=== PATIENT | female | born 1955 | race Caucasian/White ===

== ENCOUNTER 2018-04-14 06:10 | Inpatient (IN) ==
[2018-04-14] MEDS ORDERED: Albuterol 2.5 MG/3 ML NEBULIZER IH ONE (06:32)
[2018-04-14] MEDS ORDERED: CeFAZolin Syr 2,000MG/20 ML 2,000 MG/20 ML SYRINGE IVPB ONE (06:32)
[2018-04-14] MEDS ORDERED: Albuterol 2.5 MG/3 ML NEBULIZER ONE (06:37)
[2018-04-14] MEDS ORDERED: Ringers Solution, Lactated 1,000 ML IVC SCH ×2 (06:45→09:48)
--- NOTE | 2018-04-14 06:58 | History & Physical Report ---
Date of Encounter: 04/14/18 Time of Encounter: 06:58 24 Hour HP Update - Instructions Instructions: If the History and Physical is less than 30 days old and was completed prior to A.M. admission and or procedure and has NOT been updated on calendar day of procedure please complete this update prior to performing procedure. - Update Patient reports changes in Medical Condition: No Changes in examination, assessment, or condition: No Changes in Medication: No Preop tests/diagnostics Reviewed: Yes Surgery Remains Indicated: Yes Consent for Planned Operative Procedure(s) Verified: Yes - Pre-Operative Checklist Preoperative Checklist Indicated: No Prophylactic Antibiotic Ordered: Yes Is VTE Prophylaxis Indicated?: Yes
[2018-04-14] MEDS ORDERED: Lidocaine -MPF 2% 2 ML VIAL ONE (07:07)
[2018-04-14] MEDS ORDERED: *HR* Succinylcholine 200 MG/10 ML VIAL IVP ONE (07:07)
[2018-04-14] MEDS ORDERED: Dexamethasone 4 MG/ML VIAL ONE ×2 (07:07→07:10)
[2018-04-14] MEDS ORDERED: Lidocaine -MPF 4% 5 ML AMPUL ONE (07:07)
[2018-04-14] MEDS ORDERED: Ondansetron 4 MG/2 ML VIAL ONE (07:07)
[2018-04-14] MEDS ORDERED: *HR* Midazolam HCl 2 MG/2 ML VIAL ONE (07:08)
[2018-04-14] MEDS ORDERED: *HR* Propofol 200 MG/20 ML VIAL IVP ONE (07:08)
[2018-04-14] MEDS ORDERED: *HR* FentaNYL (PF) 100 MCG/2 ML VIAL ONE (07:08)
[2018-04-14] MEDS ORDERED: Ethanol\\Acetic Acid\\Na Ace\\Ben 1,000 ML IRRIG.SOLN IR ONE (07:09)
[2018-04-14] MEDS ORDERED: ROPIVACAINE HCL/PF 0.5% 30 ML VIAL ONE (07:14)
[2018-04-14] MEDS ORDERED: Bupivacaine/Clonidine Syringe 1 EACH SYRINGE ONE (07:14)
--- NOTE | 2018-04-14 07:17 | Anesthesia Evaluation PreOp ---
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 Other Medical History: Diabetes Type II, GERD Anesthesia History: No Prior Anesthetic Complications : No Alcohol Use: none Drug use: none Medications and Allergies Albuterol Sulfate [Albuterol Inhaler] 2 puff IH Q6H PRN 11/27/15 [History] Aspirin Enteric Coated [Aspirin EC] 81 mg PO DAILY 11/27/15 [History] Cholecalciferol (D-3) [Vitamin D] 1,000 unit PO DAILY 11/27/15 [History] Furosemide [Lasix] 20 mg PO DAILY 11/27/15 [History] Levothyroxine [Synthroid] 100 mcg PO MOTUWETHFRSA 11/27/15 [History] Losartan Potassium [Cozaar] 50 mg PO DAILY 11/27/15 [History] Metoprolol XL (24 HR) Succ [Toprol Xl] 25 mg PO DAILY 11/27/15 [History] Omeprazole [PriLOSEC] 20 mg PO DAILY 11/27/15 [History] Potassium Chloride [K-Tab ER] 20 meq PO BID 11/27/15 [History] Simvastatin [Zocor] 40 mg PO HS 11/27/15 [History] Gabapentin [Neurontin] 400 mg PO HS 01/05/17 [History] Levothyroxine Sodium [Levoxyl] 50 mcg PO DUNBAR 01/05/17 [History] SitaGLIPtin [Januvia] 100 mg PO DAILY 01/05/17 [History] Ascorbic Acid [Vitamin C] 1,000 mg PO DAILY 11/14/17 [History] Cyclobenzaprine HCl 5 mg PO HS PRN 11/14/17 [History] Fluticasone Propionate Nasal [Flonase] 2 spr NS BID PRN 11/14/17 [History] Multivit-Min/FA/Lycopen/Lutein [Adults 50+ Multivitamin Tablet] 1 tab PO DAILY 11/14/17 [History] Allergy/AdvReac Type Severity Reaction Status Date / Time No Known Allergies Allergy Verified 04/10/18 10:23 - Meds/Allergy Pre-op Review Medications Reviewed: Yes Allergies Reviewed: Yes Beta Blockers on Current Med List: No Anesthesia Results - Labs Laboratory Tests 04/10/18 04/10/18 11:22 11:22 Hgb 12.6 Hct 40.0 Plt Count 219 Sodium 139 Potassium 4.0 BUN 12 Creatinine 0.92 - Imaging EKG: report reviewed (Electronic Ventricular) Additional studies: LVEF 55%, no pulm htn Anesthesia Exam O2 Sat Height 1.68 m Weight 89.811 kg O2 Sat by Pulse Oximetry 98 O2 Sat by Pulse Oximetry 98 Vital Signs Temp Pulse Resp BP Pulse Ox 98.0 F 67 16 116/59 98 04/14/18 07:05 04/14/18 07:05 04/14/18 07:05 04/14/18 07:05 04/14/18 07:05 Height: 5'6 Weight: 198 lbs NPO (# of Hours): MN Pain Scale: 0 - HEENT Pupil (Motor): Pupils equal, EOMI Mallampati: III Denture Type: Upper: Complete Oral Opening: Less than or equal to 3 - OUT[employer]ARD [employer]OR [employer]SEM[employer]ER LOC: Oriented [employer]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
--- NOTE | 2018-04-14 07:42 | Discharge Summary ---
<Sterling Aquino - Last Filed: 04/14/18 07:40> Orders not resulted at time of discharge: Pending orders 04/14/18 06:59 XR post op reverse apex LT [XR] Routine 04/14/18 07:00 POC Glucometer Test [POC] Stat 04/14/18 07:14 US anesthesia pain block [US] Routine Date of Encounter: 04/14/18 - Discharge Diagnosis (1) Rotator cuff tear arthropathy of left shoulder Priority: Primary Status: Chronic (2) Status post reverse total replacement of left shoulder Priority: Primary Status: Acute (3) Obesity (BMI 30.0-34.9) Priority: Secondary Status: Chronic (4) CHF (congestive heart failure) Priority: Secondary Status: Acute Qualifiers: Heart failure type: diastolic Heart failure chronicity: chronic Qualified Code(s): I50.32 - Chronic diastolic (congestive) heart failure (5) Hypertension Priority: Secondary Status: Chronic Qualifiers: Hypertension type: unspecified Qualified Code(s): I10 - Essential (primary) hypertension (6) Obstructive sleep apnea Priority: Secondary Status: Chronic (7) Pacemaker Priority: Secondary Status: Chronic (8) Diabetes type 2, controlled Priority: Secondary Status: Chronic Qualifiers: 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 Frey is a 62 year old female - Time Spent with Patient Total time spent providing and/or coordinating discharge services: - Discharge Medications Prescriptions: OxyCODONE Immed Rel [Roxicodone 5 MG] 5 mg PO Q6HR PRN 5 Days #20 tablet PRN Reason: Pain Home Medications: Albuterol Sulfate [Albuterol Inhaler] 2 puff IH Q6H PRN 11/27/15 [History] Aspirin Enteric Coated [Aspirin EC] 81 mg PO DAILY 11/27/15 [History] Cholecalciferol (D-3) [Vitamin D] 1,000 unit PO DAILY 11/27/15 [History] Furosemide [Lasix] 20 mg PO DAILY 11/27/15 [History] Levothyroxine [Synthroid] 100 mcg PO MOTUWETHFRSA 11/27/15 [History] Losartan Potassium [Cozaar] 50 mg PO DAILY 11/27/15 [History] Metoprolol XL (24 HR) Succ [Toprol Xl] 25 mg PO DAILY 11/27/15 [History] Omeprazole [PriLOSEC] 20 mg PO DAILY 11/27/15 [History] Potassium Chloride [K-Tab ER] 20 meq PO BID 11/27/15 [History] Simvastatin [Zocor] 40 mg PO HS 11/27/15 [History] Levothyroxine Sodium [Levoxyl] 50 mcg PO DUNBAR 01/05/17 [History] Ascorbic Acid [Vitamin C] 1,000 mg PO DAILY 11/14/17 [History] Metformin HCl ER 1 tab PO DAILY 04/14/18 [History] OxyCODONE Immed Rel [Roxicodone 5 MG] 5 mg PO Q6HR PRN 5 Days #20 tablet 04/14/18 [Rx] Pregabalin [Lyrica] 150 mg PO DAILY 04/14/18 [History] SitaGLIPtin [Januvia] 1 tab PO DAILY 04/14/18 [History] Allergies/Adverse Reactions: Allergy/AdvReac Type Severity Reaction Status Date / Time No Known Allergies Allergy Verified 04/10/18 10:23 Primary care physician: Ga Fernandez MD - Patient Status Disposition: Home, Self-Care Condition: Good - Discharge Instructions Follow Up With: Ga Fernandez MD [Primary Care Provider] - Additional Instructions: Discharge Instructions: Total Shoulder Please call [facility] ([phone]), your Primary Care Physician, or report to the Emergency Room if you have any of the following symptoms: Nausea, vomiting, fever greater that 101.5, swelling, chest pain, shortness of breath, increased pain/redness/drainage/odor for your incision site, numbness/tingling, or any other concerning symptoms. ACTIVITY: Always keep your arm in the sling. Do not raise your arm away from your body. Do not use your arm to help with getting in or out of bed. No weight bearing permitted. Only perform those exercises given to you by your therapist. Incentive Spirometer 10 times an hour. MEDICATIONS: Upon discharge resume your home medications. Take all the medications as prescribed. Take a stool softener if taking narcotic pain medications. Stool softeners are only effective if you drink enough fluids. Drink 6-8 glass of water or fluids a day, unless this is not allowed for another health problem. Despite using stool softeners, if you haven't had a bowel movement in 3 days, please switch to a gentle laxative. Gentle laxatives are sold over the counter. You should have a bowel movement within 24 hours, if not call the office. You will be discharged from the hospital with a prescription for pain medication. You are encouraged to decrease the use of narcotic pain medication as tolerated. Should you require a refill, please call the office. [facility] prescribes narcotic pain medication for only 4-6 weeks after surgery. If you require pain medication beyond this time period, you may be referred to your Primary Care Physician or to the Pain Clinic for further evaluation. Plan ahead for refills on pain medication as many narcotics either need to be picked up at the office or mailed. It is best to call 48-72 hours in advance of needing a prescription refill so you don't run out of medication. To help control the post-operative pain, you may take NSAIDs (Aleve,Advil, Motrin, Ibuprofen, Naprosyn) or Tylenol as prescribed on the bottle in addition to the pain medication. WOUND CARE: Leave the dressing on for 7-10 days. You may change the dressing if it becomes saturated greater than 50%. Do not get the dressing wet at anytime. Wash your hands with antibacterial soap, rinse and dry prior to any wound care. If you have jone the visiting nurse or rehab facility can remove the stapes 10-14 days after surgery and place steri-strips across the wound. Leave the steri-strips in place until they fall off on their own. You may let water from the shower run on top of the steri-strips. If you do not have a visiting nurse or rehab facility, you will need to return to the office at 10-14 days for the jone to be removed. If you have itching or redness around the dressing call the office. FOLLOW-UP: Please follow up with your surgeon in the orthopedic clinic, as scheduled <Rukhsana Watson - Last Filed: 04/16/18 11:20> Orders not resulted at time of discharge: Pending orders 04/14/18 07:14 US anesthesia pain block [US] Routine 04/14/18 08:34 Surgical Pathology [PTH] Routine Date of Encounter: 04/15/18 Time of Encounter: 11:17 - Discharge Diagnosis (1) CHF (congestive heart failure) Status: Acute Qualifiers: Heart failure type: diastolic Heart failure chronicity: chronic Qualified Code(s): I50.32 - Chronic diastolic (congestive) heart failure (2) Status post reverse total replacement of left shoulder Status: Acute Comments: Opsite dressing, leave intact until first post-operative visit. Zipline/Jone in place, plan to remove at post-operative day #14-16. If dressing becomes >50% saturated, contact office, remove dressing and place appropriate dressing in its place. Do not allow for dressing to get wet. Shoulder Precautions x 6 weeks. Apply cold therapy wrap 3-6x/day for 20 minutes at a time. Encourage ambulation throughout the day. Use Incentive spirometer 10x/hour. Elevate affected extremity above heart as tolerated. NWB to affected upper extremity x 6 weeks. Will remove brace at first post-operative appointment. OK to remove during PT/OT and Home exercises. Remove pillow to brace on post-operative day #1. 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 Frey is a 62 year old female, s/p Left TSR-reverse on 04/14. Patient had uneventful postoperative course. Stable for discharge. Afebrile, vital signs stable. Vital Signs Temp Pulse Resp BP Pulse Ox 04/15/18 11:54 97.4 F L 60 16 120/70 98 Labs reviewed. H/H - stable, asymptomatic Abnormal Labs, Last 24 hours 04/14/18 04/14/18 04/14/18 20:55 16:28 11:44 POC Glucose 169 H 198 H 229 H Abnormal Labs 04/14/18 04/14/1804/14/18 06:56 11:44 16:28 Hct Sodium Carbon Dioxide Est GFR (Non-Af Amer) Glucose POC Glucose 141 H 229 H 198 H Calculated Osmolality 04/14/18 04/15/18 04/15/18 20:55 05:00 05:00 Hct 35.0 L Sodium 132 L Carbon Dioxide 18 L Est GFR (Non-Af Amer) 53 L Glucose 159 H POC Glucose 169 H Calculated Osmolality 278 L Pain control: adequate Participating in PT. Assessment and plan: Continue with postoperative care Discharge plan: Home with OP , discharge today. - Time Spent with Patient Total time spent providing and/or coordinating discharge services: Date of admission: 04/14 Primary care physician: Ga Fernandez MD Consults: 04/14/18 09:48 Consult to Physical Therapy [CONS] Routine Comment: post shoulder surgery Reason for Consult: post shoulder surgery Does patient have active BEDREST order?: No Is patient medically & hemodynamically stable?: Yes RT Post Op Consult [CONS] Routine Anticipated date of discharge: 04/15/18 Labs on day of discharge: Labs from last 24 hours 04/14/18 04/14/18 04/14/18 20:55 16:28 11:44 POC Glucose 169 H 198 H 229 H - Impressions ITS Impressions Shoulder X-Ray 04/14/18 06:59 IMPRESSION: 1. Expected new changes of left reverse shoulder arthroplasty. 2. Mild osteoarthritic changes of the left acromioclavicular joint. D/ / Baltazar Zambrano MD / Baltazar Zambrano MD Interpreting Provider: Baltazar Zambrano MD - Patient Status Functional capacity at discharge: independent ambulation Overall status at discharge: patient is progressing back to baseline
[2018-04-14] MEDS ORDERED: Tranexamic Acid 1,000 MG/10 ML VIAL ONE (07:53)
[2018-04-14] MEDS ORDERED: *HR* PHENYLEPHRINE 1,000 MCG/10 ML SYRINGE IVP ONE (08:03)
--- NOTE | 2018-04-14 08:19 | Anesthesia Procedures ---
Addendum entered and electronically signed by Minoo Whitney CRNA 04/14/18 10:51: ALSO AUTHOR OF DOCUMENT Original Note: Date of Encounter: 04/14/18 Time of Encounter: 07:30 Procedures: Anesthesia - Nerve Block Procedure Date: 04/14/18 Time: 07:30 Allergies/Adv Reactions: NKDA Pre-op Diagnosis: LEFT SHOULDER REPLACEMENT -ARTHRITIS/ROTATOR CUFF Surgical Procedure: LEFT SHOULDER REPLACEMENT Checklist: Correct Patient Identifier, Correct procedure, History checked Correct side: Left Blood Thinner: No Monitor Applied: EKG, BP, Pulse Oximetry Supplemental Oxygen via Nasal Cannula (L/min): 2 Sedation: Versed (mg): 2 Sedation: Fentanyl (mcg): 100 Indication: Post Op Analgesia Pre-op Neuro Deficits: No Block Type: Supraclavicular (ICB) Catheter placed: No Sterile Technique: Yes Ultrasound used: Yes Anatomy identified: Yes Visual spread of Local: Yes Neuro Stimulation: Yes Nerve Stimulator Range: 0.2 - 0.4 mA Blood on Needle Aspiration: No Smooth Injection of Local: Yes Pain with Injection of Local: No Prep: Chlorhexadine Needle: 22 x 50 mm Stimuplex Local: 0.25% Bupivicaine w/Clonidine 20 mcg/cc (ICB), Ropivacaine (0.5% WITH 8MG DECADRON ) Volume (cc): 50 Number of Attempts: 1 Complications: None/effective block Vitals: Vital Signs - Last 8 Hours Temp Pulse Resp BP Pulse Ox 04/14/18 07:32 78 16 137/81 99 04/14/18 07:15 16 116/59 98 04/14/18 07:05 98.0 F 67 16 116/59 98 Intake and Output 04/13/18 04/14/18 04/14/18 23:59 07:59 15:59 Other: Weight 89.811 kg Blood Glucose* 148 Patient Weight 04/14/18 23:59 Weight 89.811 kg
[2018-04-14] MEDS ORDERED: *HR* OxyCODONE/APAP 5/325 TABLET PO PRN (08:20)
[2018-04-14] MEDS ORDERED: *HR* Promethazine 25 MG/ML VIAL IVP PRN (08:20)
--- NOTE | 2018-04-14 08:50 | Orthopedic Operative Note ---
Date of procedure: 04/14/18 Pre-op diagnosis: Left shoulder cuff tear arthropathy Post-op diagnosis: same Procedure: Procedure: Total Shoulder Replacment Reverse, left Estimated blood loss: 100 cc Hardware: Metal and polyethylene replacement: Arthrex 24, +2 ,25 screw glenoid baseplate, 4 locking 5.5 screw, 39+4 glenosphere, 8 apex. humeral stem, poly insert 3 Exam Under anesthesia: Full motion on stability Procedural Notes: Irreparable tear rotator cuff Operative procedure: The patient was brought to the operating room and placed on the operating room table. After general anesthesia was administered the operative shoulder was examined. Findings were noted. The patient was placed in the modified beachchair position. All pressure points were padded appropriately. And the head was stabilized in the neutral position. The operative extremity was prepped and draped in the sterile surgical fashion. The patient received IV antibiotics prior to skin incision. A standard deltopectoral approach was made to the operative shoulder. Incision was made to the skin and subcutaneous tissue,hemo stasis was obtained with Bovie cautery. Using careful blunt dissection the cephalic vein was identified and mobilized medially. The deltopectoral interval was developed and the clavipectoral fascia was incised. The subscap was released off the lesser tuberosity and tagged with #2 FiberWire suture subscap was irreparable. The humerus was dislocated patient noted to have irreparable tear supraspinatus tendon, and the humeral cut was made along the anatomic neck. Anterior and posterior Bankart retractors were placed to expose the glenoid. The glenoid guide was seated and the centering hole was made. It was reamed with the appropriate reamer. The 24, +2, 25 mm screw, baseplate was seated and secured with 4 locking 5.5 screw. The baseplate was irrigated and dried and the 39+4 Glenosphere was seated and secured with the Thomsa taper. The Thomas taper was tested and found to be secure, glenosphere fixation was secondarily secured with the central screw. T he humerus was redislocated and prepared with the diaphyseal reamers, followed by a broaching process up to the appropriate size 8 apex. in the patient's anatomic version. The metaphyseal reamer was then utilized. Trial reduction found the shoulder to be relocatable. Trial components were removed and 8 apex. stem was impacted in place in the patient's anatomic version. Trial reduction found the shoulder to be relocatable and stable with the appropriate poly- Trial component was removed and the real implant was seated and secured the shoulder was reduced. The shoulder had excellent motion and excellent stability and no evidence of dislocation. The deep tissue was irrigated with pulse irrigation. The deltopectoral interval was closed with a running #1 PDS suture, subcutaneous tissue was irrigated and closed with 0 PDS suture, the skin was closed with Dermabond. The patient was placed in a sterile dressing, abduction brace and extubated. The patient was then transferred to the recovery room in stable condition. Anesthesia: GETA Surgeon: Sterling Aquino Was there an cafe assistant present: No Estimated blood loss (cc): 100 Condition: stable Disposition: PACU
[2018-04-14] MEDS: *HR* HYDROmorphone (PF) 1 MG/ML SYRINGE IVP PRN ×2 (09:00→09:27)
[2018-04-14] MEDS ORDERED: Ketorolac 30 MG/ML VIAL ONE (09:14)
[2018-04-14] MEDS ORDERED: Ketorolac 30 MG/ML VIAL IVP ONE (09:19)
--- NOTE | 2018-04-14 09:30 | Anesthesia Evaluation Post Op ---
Date of Encounter: 04/14/18 Time of Encounter: 09:40 - Vital Signs Vital Signs: Vital Signs/O2 Sat/Glucose, Most Current Temp Pulse Resp BP Pulse Ox 04/14/18 09:18 98.3 F 83 16 119/71 99 04/14/18 09:08 83 16 123/58 100 04/14/18 08:58 80 16 110/58 100 04/14/18 08:48 98.6 F 64 14 110/56 98 04/14/18 07:32 78 16 137/81 99 04/14/18 07:15 16 116/59 98 04/14/18 07:05 98.0 F 67 16 116/59 98 - Lungs Lungs: Clear Ascult./Percussion - Airway Airway: Non-obstructed - Cardiovascular Regular Rate - Mental Status Mental Status: Alert & Oriented, Answers Appropriately - Pain Pain Scale: 1 - Nausea Vomiting Nausea Vomiting: Not Present - Hydration Hydration: Ice chips - Discharge PostOp Status: Transfer Patient to floor
[2018-04-14] MEDS ORDERED: *HR* Dextrose 50 % in Water (Syg) 50 ML SYRINGE IVP PRN (09:48)
[2018-04-14] MEDS ORDERED: traMADol 50 MG TABLET PO PRN (09:48)
[2018-04-14] MEDS ORDERED: MOM Conc 10 ML UD.LIQ PO PRN (09:48)
[2018-04-14] MEDS ORDERED: Naloxone 0.4 MG/ML INJ IVP PRN (09:48)
[2018-04-14] MEDS ORDERED: Dextrose Gel 15 GM/37.5 ML TUBE PO PRN ×2 (09:48)
[2018-04-14] MEDS ORDERED: D5% in Water 1,000 ML IVC PRN (09:48)
[2018-04-14] MEDS ORDERED: *HR* OxyCODONE Immed Rel 5 MG TABLET PO PRN (09:48)
[2018-04-14] MEDS ORDERED: Ondansetron 4 MG/2 ML VIAL IVP PRN (09:48)
[2018-04-14] MEDS ORDERED: Sennosides 8.6 MG TABLET PO PRN (09:48)
[2018-04-14] MEDS ORDERED: Temazepam 15 MG CAPSULE PO PRN (09:48)
[2018-04-14] MEDS: Cholecalciferol (D-3) 1,000 UNIT TABLET PO SCH (10:33)
[2018-04-14] MEDS: *HR* SitaGLIPtin 100 MG TABLET PO SCH (10:33)
[2018-04-14] MEDS: Furosemide 20 MG TABLET PO SCH (10:33)
[2018-04-14] MEDS: Aspirin Enteric Coated 81 MG Tablet PO SCH (10:33)
[2018-04-14] MEDS: Pregabalin 75 MG CAPSULE PO SCH (10:33)
[2018-04-14] MEDS: Metoprolol XL (24 HR) Succ 25 MG TAB.ER.24H PO SCH (10:34)
[2018-04-14] MEDS: *HR* OxyCODONE/APAP 5/325 TABLET PO PRN ×3 (10:38→21:43)
[2018-04-14] MEDS: Insulin LISPRO 300 UNITS/3 ML VIAL SQ SCH ×2 (12:24→17:55)
[2018-04-14] MEDS: *HR* Enoxaparin 30 MG/0.3 ML SYRINGE SQ SCH (17:56)
[2018-04-14] MEDS ORDERED: *HR* Metformin 500 MG TABLET PO SCH (18:00)
[2018-04-14] MEDS ORDERED: *HR* Enoxaparin 30 MG/0.3 ML SYRINGE SQ SCH (18:00)
[2018-04-14] MEDS ORDERED: Insulin LISPRO 300 UNITS/3 ML VIAL SQ SCH (21:00)
[2018-04-15] MEDS: *HR* OxyCODONE/APAP 5/325 TABLET PO PRN (04:06)
[2018-04-15 05:29] LABS: Hemoglobin 11.5 g/dL (11.5-15.4)
[2018-04-15 05:42] LABS: BUN/Creatinine Ratio 14 (6-26); Blood Urea Nitrogen 15 mg/dL (8-23); Calcium 9.6 mg/dL (8.6-10.3); Carbon Dioxide 18 mEq/L (23-29); Chloride 102 mEq/L (98-107); Glucose 159 mg/dL (70-105); Osmolality,Calculated 278 (280-300); Potassium 4.4 mEq/L (3.5-5.1); Sodium 132 mEq/L (136-145); eGFR For Non-African Americans 53 (> 60)
[2018-04-15] MEDS: *HR* Enoxaparin 30 MG/0.3 ML SYRINGE SQ SCH (05:58)
[2018-04-15] MEDS ORDERED: Ascorbic Acid 500 MG TABLET PO SCH (08:00)
[2018-04-15] MEDS: Insulin LISPRO 300 UNITS/3 ML VIAL SQ SCH ×2 (08:45→12:00)
[2018-04-15] MEDS: Pregabalin 75 MG CAPSULE PO SCH (08:47)
[2018-04-15] MEDS: Metoprolol XL (24 HR) Succ 25 MG TAB.ER.24H PO SCH (08:47)
[2018-04-15] MEDS: Furosemide 20 MG TABLET PO SCH (08:48)
[2018-04-15] MEDS: Cholecalciferol (D-3) 1,000 UNIT TABLET PO SCH (08:48)
[2018-04-15] MEDS: *HR* SitaGLIPtin 100 MG TABLET PO SCH (08:48)
[2018-04-15] MEDS: Aspirin Enteric Coated 81 MG Tablet PO SCH (08:48)
[2018-04-15 11:55] VITALS: BP 120/70
== END 2018-04-15 14:37 | disposition home or self-care (01) | DRG 483 ==
LOC: SAMDAY 06:10 → 3NENU 06:58 → SAMDAY 04-15 14:37 → UNDODEPSDC 04-19 09:43
PROVIDERS: ADMIT Orthopaedic Surgery; ATTEND Orthopaedic Surgery